=== PATIENT | male | born 1950 | race Caucasian/White ===

== ENCOUNTER 2020-01-06 09:30 | Outpatient (CLI) | payer BC, SELFPAY ==
--- NOTE | 2020-01-06 11:00 | NEURO_ITS ---
Patient Number: [id number] Impression: # Complains of left forearm pain and finger numbness. # Left Carpal Tunnel Syndrome. # Left ulnar neuropathy across the elbow. # Normal needle/EMG exam. Nerve Conduction Studies Anti Sensory Summary Table Stim Site NR Peak (ms) P-T Amp (?V) Site1 Site2 Delta-P (ms) Dist (cm) Randal (m/s) Left Median Anti Sensory (2-3nd Digit) Wrist 3.9 30.6 Wrist 2-3nd Digit 3.9 14.0 36 Wrist 4.1 13.9 Wrist 2-3nd Digit 3.9 14.0 36 Left Radial Anti Sensory (Base 1st Digit) Wrist 2.1 24.3 Wrist Base 1st Digit 2.1 0.0 Left Ulnar Anti Sensory (5th Digit) Wrist 2.5 28.1 Wrist 5th Digit 2.5 14.0 56 Motor Summary Table Stim Site NR Onset (ms) O-P Amp (mV) Site1 Site2 Delta-0 (ms) Dist (cm) Randal (m/s) Left Median Motor (Abd Poll Brev) Wrist 4.5 1.9 Elbow Wrist 5.3 30.0 57 Elbow 9.8 1.7 Left Ulnar Motor (Abd Dig Minimi) Wrist 2.7 5.9 A Elbow Wrist 6.2 30.0 48 A Elbow 8.9 5.6 B Elbow Wrist 4.4 24.0 55 B Elbow 7.1 5.9 F Wave Studies NR F-Lat (ms) L-R F-Lat (ms) Left Median (Mrkrs) (Abd Poll Brev) 30.92 Left Ulnar (Mrkrs) (Abd Dig Min) 29.03 EMG Side Muscle Nerve Root Ins Act Fibs Amp Dur Recrt Comment Left 1stDorInt Ulnar C8-T1 Nml Nml Nml Nml Nml Left Ext Indicis Radial (Post Int) C7-8 Nml Nml Nml Nml Nml Left Ext Digitorum Radial (Post Int) C7-8 Nml Nml Nml Nml Nml Left BrachioRad Radial C5-6 Nml Nml Nml Nml Nml Left PronatorTeres Median C6-7 Nml Nml Nml Nml Nml Left Abd Poll Brev Median C8-T1 Nml Nml Nml Nml Nml Left ABD Dig Min Ulnar C8-T1 Nml Nml Nml Nml Nml MTDD
== END 2020-01-06 09:31 | disposition home or self-care (01) ==
PROVIDERS: PCP Family Medicine; Visit Provider Physician Assistant Surgical
DX: G56.22 Lesion of ulnar nerve, left upper limb (principal); G56.02 Carpal tunnel syndrome, left upper limb
CPT/HCPCS: 95886; 95909

== ENCOUNTER 2023-05-29 11:11 | Outpatient (CLI) | payer BC, SELFPAY ==
--- NOTE | ~2023-05-29 | CT_ITS ---
EXAMINATION: CT abdomen pelvis wo con DATE: 05/29/2023 12:27 INDICATION: Right lower quadrant abdominal pain. TECHNIQUE: Computed tomography (CT) of the abdomen and pelvis was performed without intravenous contr ast. Automated exposure control and iterative reconstruction technique were employed. The dose-length product was 840.38 mGy-cm. COMPARISON: CT abdomen and pelvis 03/23/2019 FINDINGS: The visualized portions of the lung bases demonstrate calcified left lung nodules, consiste nt with old granulomatous disease. There is mild atelectasis bilaterally. No pleural effusion. The he art size is normal. There are coronary artery calcifications. No pericardial effusion. There is mild bilateral gynecomastia. The liver, gallbladder, spleen, pancreas, adrenal glands, and kidneys are nor mal. There is no urolithiasis. There are scattered diverticula in the colon. There is fat stranding a round the sigmoid colon. The appendix is normal. There are no dilated loops of bowel. There is a righ t inguinal hernia containing a portion of the bladder. There is a left inguinal hernia containing fat . Aortic atherosclerosis is noted. There are no pathologically enlarged lymph nodes. There is no free intraperitoneal fluid. There is severe lumbar spondylosis and moderate thoracic spondylosis. IMPRESSION: 1. Right inguinal hernia containing a portion of the bladder. 2. Mild sigmoid diverticulitis. No perforation or abscess. 3. Left inguinal hernia containing fat. Reviewed, dictated and finalized at location A.
== END 2023-05-29 11:12 | disposition home or self-care (01) ==
PROVIDERS: PCP Family Medicine; Visit Provider Nurse Practitioner Family
DX: R10.31 Right lower quadrant pain (principal); R10.32 Left lower quadrant pain; Z87.19 Personal history of other diseases of the digestive system; K57.32 Diverticulitis of large intestine without perforation or abscess without bleeding; K40.20 Bilateral inguinal hernia, without obstruction or gangrene, not specified as recurrent
CPT/HCPCS: 74176

== ENCOUNTER 2023-09-10 12:26 | Outpatient (CLI) | payer BC, SELFPAY | END 2023-09-10 12:27 | disposition home or self-care (01) | LOC: ANHSURGERY 12:32 | PROVIDERS: PCP Family Medicine; Visit Provider Surgery | DX: K40.20 Bilateral inguinal hernia, without obstruction or gangrene, not specified as recurrent (principal); Z01.818 Encounter for other preprocedural examination | CPT/HCPCS: 36415; 86850; 86900; 86901 ==

== ENCOUNTER 2023-09-16 00:09 | Day surgery (SDC) | payer BC, SELFPAY ==
[2023-09-09 13:18] VITALS: BMI 31.1
--- NOTE | 2023-09-09 13:33 | PC.NURSE ---
PRE-OP INSTRUCTIONS, PLEASE READ CAREFULLY Report to the Outpatient Waiting Room, entrance under the green pavilion located off [facility], at time _1000_ on date _09/16/23_. Planned Procedure Time: _1200_. Time changes happen often and if your time is changed the preop area will call you the afternoon before. - You and your visitor will be asked to self-screen and do not enter if you have any COVID symptoms. - A mask is optional within the hospital at this time. Patients may have clear liquids (water, carbonated beverages, clear teas, apple juice) until 3 hours prior to surgery (0900 AM) with a maximum of 20 ounces. - No food from midnight until time of surgery Take the following medications with a SIP of water the morning of surgery: _AMLODIPINE, ISOSORBIDE, NEBIVOLOL_ DO NOT STOP ANY OF YOUR OTHER PRESCRIPTION MEDICATIONS PRIOR TO SURGERY ?EXCEPT THE FOLLOWING Medications to discontinue per DR. SAMUEL - _CALL OFFICE REGARDING DICLOFENAC & VASCEPA_ Date to take last dose Please no make-up, nail montserratian, hairspray, perfume, deodorant, or body powder the day of surgery. No jewelry (including any body piercings) or valuables the day of surgery, leave them at home. Please take a shower or bath the night before, or the morning of, surgery with an antibacterial soap (HIBICLENS). Wear comfortable, loose fitting clothing. - Jewelry must be removed prior to entering the operating room. Rings and piercings that are not removed may be cut off. - The hospital will not accept responsibility for valuables. - Please leave all valuables, including medications, at home the day of surgery. If you are going home after surgery, a licensed double bottom driver must drive you home. - NO public transportation without another adult if you receive anesthesia. - We recommend that an adult stay with you for 24 hours following discharge. - We also recommend that you do not drive, make important decision, drink alcoholic beverages, or take any drugs that were not prescribed by your health care provider for at least 24 hours after your discharge time. Follow any additional instructions given to you from your surgeon. If you or anyone in your household have experienced Covid symptoms in the past week, please notify your surgeon or the nurse liaison at the phone number below for possible testing. Telephone instructions given to _PATIENT_and asked if any additional questions and then verbalized understanding. Patient advised to call surgeon office or pre surgery nurse liaison [phone] if any additional questions.
[2023-09-16] VITALS (9 sets, daily range): BP systolic 115–132; BP diastolic 69–87; PULSE 57–73; RESP 12–18; TEMP 36.3–36.5; O2SAT 94–98
[2023-09-16] MEDS: LACTATED RINGERS 1,000 ML 30 ML IV CONT ×2 (10:39→15:39)
[2023-09-16] MEDS: KETOROLAC 15 MG/ML VIAL (*BKC) IV PUSH (10:40)
[2023-09-16] MEDS: ACETAMINOPHEN 500 MG TABLET 1000 MG PO (10:41)
--- NOTE | 2023-09-16 11:54 | WPDANESEPPF ---
Anes - Initial Pre Proc Eval Procedure: Operation Date: 09/16/23 12:00 Proposed Procedures p Robotic Assisted Laparoscopic Bilateral Inguinal Hernia Repair With Mesh, Possible Open - Duke Senior MD Date/Time: 09/16/23 11:54 Surgeon: Duke Senior MD Pre Op Diagnosis: Dionte Ing Hernias Patient Data Age: 72 Gender: M Height: 1.73 m Weight: 93 kg Last Vital Signs Temp 97.7 F 09/16/23 10:05 Pulse 57 L 09/16/23 10:05 Resp 18 09/16/23 10:05 BP 122/77 09/16/23 10:05 Pulse Ox 98 09/16/23 10:05 Allergies Allergy/AdvReac Type Severity Reaction Status Date / Time No Known Allergies Allergy Unknown Verified 09/16/23 10:12 Home Medications Medication Instructions Recorded Confirmed Type isosorbide mononitrate 30 mg 30 mg PO DAILY 08/25/19 09/16/23 History tablet,extended release 24 hr valacyclovir 1 gram tablet See Rx Instructions PO BID PRN 04/06/20 09/16/23 History rash diclofenac sodium 50 mg 50 mg PO BID PRN pain #180 tabs 12/04/21 09/16/23 Rx tablet,delayed release aliskiren 300 mg tablet (Tekturna) 300 mg PO DAILY #90 tabs 12/30/22 09/16/23 Rx nebivolol 20 mg tablet (Bystolic) 20 mg PO DAILY #90 tabs 02/20/23 09/16/23 Rx amlodipine 10 mg tablet 5 mg PO DAILY #30 tabs 06/16/23 09/16/23 Rx atorvastatin 20 mg tablet 20 mg PO DAILY #90 tabs 06/30/23 09/16/23 Rx hydrochlorothiazide 25 mg tablet 25 mg PO DAILY #90 tabs 07/29/23 09/16/23 Rx clotrimazole-betamethasone 1 1 applic topical BID PRN Skin 09/09/23 09/16/23 History %-0.05 % topical cream Irritation diclofenac 1.5 % solution and See Rx Instructions .Route 09/09/23 09/16/23 History capsaicin 0.025 % cream topical kit .COMPLEX PRN Pain icosapent ethyl 1 gram capsule 2 g PO BID 09/09/23 09/16/23 History (Vascepa) Patient hx anesthesia problems: none Family hx anesthesia problems: none Results Review: All pre-operative results and documents have been reviewed as part of the pre-operative evaluation. [facility] Past Medical History Medical History Bilateral inguinal hernia Right inguinal hernia containing part of the urinary bladder on CT 02/26/2023. Bilateral lower abdominal pain BMI 31.0-31.9,adult BMI 32.0-32.9,adult COVID-19 (04/23/22) tested positive 04/24/2022, vaccinated. COVID antibody positive at greater than 150 on 07/02/2022. Diverticulitis Encounter for prostate cancer screening PSA 0.95 on 07/02/2022. PSA 1.04 on 07/29/2023. Fever blister History of diverticulitis Mild sigmoid diverticulitis on 02/26/[address]. Hyperlipidemia Hypertension Obesity (BMI 30.0-34.9) Obstructive sleep apnea (~03/11/23) failed APAP. home sleep study ordered by microsoft architect on 03/11/2023 with severe [place] with AHI of 46.6 with saturation down 87% with recommendation for CPAP titration orAPAP at 6 -18 cm of water pressure. Osteoarthritis Pain, foot, right, chronic Tinea cruris Surgical History Surgical History Hx of heart artery stent stents x5 in 2012 Family History Family History Mother Patient's mother is , Onset Age: 56 Acute myocardial infarction Family history of malignant neoplasm, Onset Age: 56 Cancer Father Acute myocardial infarction, Onset Age: 63 Sibling Acute myocardial infarction, Onset Age: 52 Grandparent Family history of dementia Other Cerebrovascular accident Heart disease Hypertension Social History Social History Smoking status: Never smoker Second hand tobacco smoke exposure: No Alcohol intake: former Alcohol use details: QUIT 2019 Substance use: never Substance use type: does not use Lack of Transportation: No Lack of Food: Never True Current Housing: I Have Housing Concerned About Future [place]
--- NOTE | 2023-09-16 12:01 | WPDHPUPDATE1 ---
History and Physical Update Update Date/Time: 09/16/23 12:01 History and Physical has been reviewed, including an updated exam of the patient. There are NO changes in the patient's condition. Risks, benefits, and alternatives have been discussed and questions answered. Patient agrees to proceed with procedure.
[2023-09-16] MEDS: ceFAZolin 2 GM/D5W 50 ML 2 GM/50 ML BAG IVPB (12:13)
[2023-09-16] MEDS: LIDO 1%/EPINEPHRINE 1:100,000 20 ML VIAL 30 ML INFILTRATE (12:59)
[2023-09-16] MEDS: ONDANSETRON INJ 4 MG/2 ML VIAL IV PUSH (16:44)
--- NOTE | 2023-09-16 18:30 | W.PM.PROC2 ---
Procedure Note - Detailed Date of Procedure 09/16/23 Pre-op Diagnosis Reducible bilateral inguinal hernias Post-op Diagnosis Same Procedure Performed robotic assisted laparoscopic bilateral inguinal hernia repair with Bard 3D mid weight mesh. Surgeon Duke Senior MD Program Facilitator SOOLMON Rand Anesthesia General Indications Patient is a 9-year-old gentleman who has had longstanding bilateral inguinal hernias the enlarged over time and have become symptomatic with some soreness and pain. He did have a preoperative CT scan which showed the sliding right inguinal hernia with a portion of the bladder in the hernia. The left inguinal hernia just had fatty tissue in it. He presents now for elective robotic assisted laparoscopic bilateral inguinal hernia repair with mesh. Findings Patient had bilateral inguinal hernias both which were indirect inguinal hernias. In the right inguinal hernia which was larger assist sliding hernia with a portion of the bladder within the inguinal canal. The left-sided inguinal hernia she has had fatty tissue in the inguinal canal through the defect. Description of Procedure After informed consent was obtained patient brought to the operating room was placed supine position and then general endotracheal anesthesia was administered. A 3 way Salinas catheter was then placed without difficulty to instill saline into the bladder at the time of dissection of the bladder out of the right inguinal hernia. The abdomen and bilateral groin regions were then prepped and draped usual sterile fashion. Time-out was then performed correctly identifying the patient as well as procedure to be performed verifying that he was given perioperative IV antibiotics. First started by entering the abdomen left upper quadrant utilizing a 10mm Optiview port. Once inside the abdomen insufflated to adequate pneumoperitoneum 15mmHg of CO2. The patient was then placed in the head-down Trendelenburg position allowing the bowel to fall out the pelvis. I could easily see that there were 2 hernias. The right inguinal hernia much larger than left inguinal hernia. Both appeared to be direct inguinal hernias. I then placed additional robotic trocar ports across the mid abdomen under direct visualization. The [employer] robot was then brought to the patient's bedside on the right and then docked to the robotic ports. Robotic instruments were then advanced into the abdomen under visualization. I then scrubbed out the procedure and sent down the robotic console to perform the dissection robotically. I then proceeded to make a preperitoneal flap across the lower portions of the abdomen stay anterior bit medial to the bilateral anterior suprailiac iliac spines. Utilizing robotic hook electrocautery dissection I then dissected this preperitoneal plane and divided the bilateral median umbilical ligaments to release the bladder. I 1st started to dissect down to the left pubic tubercle which identified and then worked my way across the midline to the sliding component of the hernia containing the bladder I dissected down to the space of Retzius for couple cm without difficulty. I then continued my dissection of the left-sided inguinal hernia and dissected the indirect inguinal hernia sac and the inguinal canal. It was then everted. The vas deferens and testicular vessels were identified preserved without injury. I dissected the peritoneal flap up to the psoas muscle past where the vas deferens and the testicular vessels separate. A cord lipoma was then dissected free of the structures and resected and removed from the abdomen and discarded. I then started to dissect the bladder out of the right inguinal hernia. This is then very carefully after instilling foot 200cc of saline solution into the bladder. The bladder did distend could easily see where the wall the bladder was as I dissected out and from the cord structures in the right inguinal region. Identifie
== END 2023-09-16 18:25 | disposition home or self-care (01) ==
PROVIDERS: PCP Family Medicine; Visit Provider Surgery
PROC: 8E0Y4CZ Robotic Assisted Procedure of Lower Extremity, Percutaneous Endoscopic Approach (ICD-10-PCS; CPT 49650; principal; 2023-09-16 12:00)
DX: K40.20 Bilateral inguinal hernia, without obstruction or gangrene, not specified as recurrent (principal); I10 Essential (primary) hypertension; E78.5 Hyperlipidemia, unspecified; G47.33 Obstructive sleep apnea (adult) (pediatric); Z95.5 Presence of coronary angioplasty implant and graft; E66.9 Obesity, unspecified; Z68.30 Body mass index [BMI] 30.0-30.9, adult
CPT/HCPCS: 49650; S2900; A9270; C1781; J0690; J1100; J1170; J1885; J2250; J2405; J2704; J3010; J7030; J7120

== ENCOUNTER 2024-01-30 10:43 | Emergency (ER) | payer BC, SELFPAY ==
--- NOTE | ~2024-01-30 | XR_ITS ---
XR toe 5th LT min 2V 01/30/2024 11:07 Indication: Left fifth toe pain Procedure: 4 views left fifth toe Comparison: No prior studies for comparison. Findings: There is a minimally displaced extra-articular fracture of the fifth proximal phalanx. Mild dorsal angulation. No other fracture identified. There are degenerative calcaneal enthesophytes. Impression: 1: Minimally displaced extra-articular fracture left fifth proximal phalanx with mild dorsal angulati on. Reviewed, dictated and finalized at location B. Impression: 1: Minimally displaced extra-articular fracture left fifth proximal phalanx wit h mild dorsal angulation.
[2024-01-30 10:48] VITALS: BP 176/88; PULSE 60; RESP 16; TEMP 36.8; O2SAT 98
--- NOTE | 2024-01-30 11:22 | ED.LOWEXIN ---
HPI - Extremity Injury (Lower) General Chief Complaint: Extremity Injury, Lower Stated Complaint: L 5TH TOE PAIN Time Seen by Provider: 01/30/24 10:48 Source: patient Mode of arrival: ambulatory Limitations: no limitations History of Present Illness HPI Narrative: Patient is a 73 y/o male who presents to the ED with c/o left 5th toe pain. Patient reports just prior to arrival, he hit his toe on a piece of furniture. He states he states his left 5th toe was bent outward laterally. He complains of pain with ambulation, otherwise denies significant pain. Denies numbness. Denies any other injury. Related Data Home Medications Medication Instructions Recorded Confirmed isosorbide mononitrate 30 mg 30 mg PO DAILY 08/25/19 10/15/23 tablet,extended release 24 hr valacyclovir 1 gram tablet See Rx Instructions PO BID PRN 04/06/20 10/15/23 rash clotrimazole-betamethasone 1 1 applic topical BID PRN Skin 09/09/23 10/15/23 %-0.05 % topical cream Irritation diclofenac 1.5 % solution and See Rx Instructions .Route 09/09/23 10/15/23 capsaicin 0.025 % cream topical kit .COMPLEX PRN Pain icosapent ethyl 1 gram capsule 2 g PO BID 09/09/23 10/15/23 (Vascepa) Allergies Allergy/AdvReac Type Severity Reaction Status Date / Time No Known Allergies Allergy Unknown Verified 01/30/24 10:51 Review of Systems Review of Systems: CONSTITUTIONAL: Denies fever, chills, or sweats. MUSCULOSKELETAL: See HPI. NEUROLOGIC: Denies headache, dizziness, numbness, or weakness. All systems reviewed & are unremarkable except as noted in HPI and below PMFSH Past Medical History Medical History Bilateral inguinal hernia Right inguinal hernia containing part of the urinary bladder on CT 02/26/2023. Bilateral lower abdominal pain BMI 31.0-31.9,adult BMI 32.0-32.9,adult COVID-19 (04/23/22) tested positive 04/24/2022, vaccinated. COVID antibody positive at greater than 150 on 07/02/2022. Diverticulitis Encounter for prostate cancer screening PSA 0.95 on 07/02/2022. PSA 1.04 on 07/29/2023. Fever blister History of diverticulitis Mild sigmoid diverticulitis on 02/26/[address]. Hyperlipidemia Hypertension Obesity (BMI 30.0-34.9) Obstructive sleep apnea (~03/11/23) failed APAP. home sleep study ordered by percussion teacher on 03/11/2023 with severe [place] with AHI of 46.6 with saturation down 87% with recommendation for CPAP titration orAPAP at 6 -18 cm of water pressure. Osteoarthritis Pain, foot, right, chronic Tinea cruris Surgical History Surgical History H/O bilateral inguinal hernia repair 09/16/23 Hx of heart artery stent stents x5 in 2013 Family History Family History Mother Patient's mother is , Onset Age: 56 Acute myocardial infarction Family history of malignant neoplasm, Onset Age: 56 Cancer Father Acute myocardial infarction, Onset Age: 63 Sibling Acute myocardial infarction, Onset Age: 52 Grandparent Family history of dementia Other Cerebrovascular accident Heart disease Hypertension Social History Social History Smoking status: Never smoker Second hand tobacco smoke exposure: No Alcohol intake: former Alcohol use details: QUIT 2019 Substance use: never Substance use type: does not use Lack of Transportation: No Lack of Food: Never True Current Housing: I Have Housing Concerned About Future Housing: No Difficulty Paying Gas/Electric Bills: No Difficulty Paying for Meds: No Currently Unemployed: No Education: Associate Degree Difficulty w/ Childcare or Family Care: No Living arrangements: with family Occupation/Education: retired Gender identity (if verbalized by the patient): Male Sexu
== END 2024-01-30 11:40 | disposition home or self-care (01) ==
PROVIDERS: Emergency Provider Physician Assistant; PCP Family Medicine
DX: S92.512A Displaced fracture of proximal phalanx of left lesser toe(s), initial encounter for closed fracture (principal); I10 Essential (primary) hypertension; E78.5 Hyperlipidemia, unspecified; E66.9 Obesity, unspecified; Z68.30 Body mass index [BMI] 30.0-30.9, adult; M19.90 Unspecified osteoarthritis, unspecified site; G47.33 Obstructive sleep apnea (adult) (pediatric); Z95.5 Presence of coronary angioplasty implant and graft; Z86.16 Personal history of COVID-19; W22.03XA Walked into furniture, initial encounter
CPT/HCPCS: 73660; 99284

== ENCOUNTER 2024-05-10 06:46 | Outpatient (CLI) | payer BC, SELFPAY ==
--- NOTE | ~2024-05-10 | CT_ITS ---
CT of the Abdomen and Pelvis: Indication: Diarrhea, weight loss Technique: 2.5 mm axial scans were obtained through the abdomen and pelvis following intravenous adm inistration of 100 cc of Omnipaque 350. Dose reduction technique was used on this scan by utilizing a utomated exposure control and iterative reconstruction technique. The dose-length product (DLP) was 7 78.22 mGy-cm. COMPARISON: 05/29/2023 Findings: Scans through the lung bases demonstrated stable calcified left lower lobe granuloma. The liver, spleen, pancreas, gallbladder, adrenals and left kidney are within normal limits. Probable right renal cyst present. There are atherosclerotic calcifications of the aorta. No lymphadenopathy . There is wall thickening of the sigmoid colon with underlying diverticular disease. No bowel obstruct ion. No abscess or free air. Images through the pelvis were performed. Urinary bladder unremarkable. No pelvic mass seen. No ascit es. Impression: Wall thickening of sigmoid colon suggests minimal acute diverticulitis. Neoplasm lesion is a potentia l alternative consideration. Consider colonoscopy, as indicated, or possibly follow-up exam after int erval therapy. Reviewed, dictated and finalized at location . Impression: Wall thickening of sigmoid colon suggests minimal acute diverticulitis. Neoplas m lesion is a potential alternative consideration. Consider colonoscopy, as ind icated, or possibly follow-up exam after interval therapy.
[2024-05-10 07:14] LABS: Estimated Glomerular Filt Rate 50
== END 2024-05-10 06:47 | disposition home or self-care (01) ==
PROVIDERS: PCP Family Medicine; Visit Provider Family Medicine
DX: R10.31 Right lower quadrant pain (principal); R10.32 Left lower quadrant pain; R19.7 Diarrhea, unspecified; R63.4 Abnormal weight loss; K57.32 Diverticulitis of large intestine without perforation or abscess without bleeding
CPT/HCPCS: 74177; Q9967

== ENCOUNTER 2024-07-13 00:54 | Day surgery (SDC) | payer BC, SELFPAY ==
[2024-07-13 13:02] VITALS: BP 132/77; PULSE 50; RESP 18; TEMP 36.2; O2SAT 99; BMI 28.6
[2024-07-13] MEDS: LACTATED RINGERS 1,000 ML 150 ML IV CONT (13:14)
--- NOTE | 2024-07-13 13:15 | WPDANESEPPF ---
Anes - Initial Pre Proc Eval Procedure: Operation Date: 07/13/24 14:00 Proposed Procedures p Colonoscopy - Raymond Kennedy MD Date/Time: 07/13/24 13:15 Surgeon: Raymond Kennedy MD Pre Op Diagnosis: diarrhea, diverticulitis of intestine,w/o perf. Patient Data Age: 73 Gender: M Height: 1.75 m Weight: 88 kg Last Vital Signs Temp 97.1 F L 07/13/24 13:02 Pulse 50 L 07/13/24 13:02 Resp 18 07/13/24 13:02 BP 132/77 07/13/24 13:02 Pulse Ox 99 07/13/24 13:02 O2 Del Method Room Air 07/13/24 13:02 Allergies Allergy/AdvReac Type Severity Reaction Status Date / Time No Known Allergies Allergy Unknown Verified 07/13/24 12:56 Home Medications Medication Instructions Recorded Confirmed Type isosorbide mononitrate 30 mg 30 mg PO DAILY 08/25/19 07/13/24 History tablet,extended release 24 hr valacyclovir 1 gram tablet See Rx Instructions PO BID PRN 04/06/20 07/13/24 History rash amlodipine 10 mg tablet 5 mg PO DAILY #30 tabs 06/16/23 07/13/24 Rx atorvastatin 20 mg tablet 20 mg PO DAILY #90 tabs 06/30/23 07/13/24 Rx clotrimazole-betamethasone 1 1 applic topical BID PRN Skin 09/09/23 07/13/24 History %-0.05 % topical cream Irritation diclofenac 1.5 % solution and See Rx Instructions .Route 09/09/23 07/13/24 History capsaicin 0.025 % cream topical kit .COMPLEX PRN Pain icosapent ethyl 1 gram capsule 2 g PO BID 09/09/23 07/13/24 History (Vascepa) aliskiren 300 mg tablet (Tekturna) 300 mg PO DAILY #90 tabs 10/24/23 07/13/24 Rx diclofenac sodium 50 mg 50 mg PO BID PRN pain #180 tabs 10/24/23 07/13/24 Rx tablet,delayed release nebivolol 20 mg tablet (Bystolic) 20 mg PO DAILY #90 tabs 03/22/24 07/13/24 Rx hydrochlorothiazide 25 mg tablet 25 mg PO DAILY #90 tabs 05/10/24 07/13/24 Rx aspirin 81 mg tablet,delayed 81 mg PO DAILY 06/22/24 07/13/24 History release (Adult Low Dose Aspirin) dicyclomine 10 mg capsule See Rx Instructions .Route 06/28/24 07/13/24 Rx .COMPLEX #90 caps Patient hx anesthesia problems: none Family hx anesthesia problems: none Results Review: All pre-operative results and documents have been reviewed as part of the pre-operative evaluation. [facility] Past Medical History Medical History Bilateral inguinal hernia Right inguinal hernia containing part of the urinary bladder on CT 02/26/2023. surgery 09/16/2024. Bilateral lower abdominal pain BMI 31.0-31.9,adult BMI 32.0-32.9,adult Colon cancer screening normal colonoscopy 07/08/2019 with recheck in 10 years. COVID-19 (04/23/22) tested positive 04/24/2022, vaccinated. COVID antibody positive at greater than 150 on 07/02/2022. Dental abscess Diarrhea Stool was negative for C difficile toxin on 04/26/2024. Diverticulitis Dry eye syndrome Encounter for prostate cancer screening PSA 0.95 on 07/02/2022. PSA 1.04 on 07/29/2023. Fever blister History of diverticulitis Mild sigmoid diverticulitis on 02/26/[address]. Hyperlipidemia Hypertension Obesity (BMI 30.0-34.9) Obstructive sleep apnea (~03/11/23) failed APAP. home sleep study ordered by content designer on 03/11/2023 with severe [place] with AHI of 46.6 with saturation down 87% with recommendation for CPAP titration orAPAP at 6 -18 cm of water pressure. Osteoarthritis Pain, foot, right, chronic Tinea cruris Weight loss, abnormal Surgical History Surgical History H/O bilateral inguinal hernia repair 09/16/23 Hx of heart artery stent stents x5 in 2012 Family History Family History Mother Patient's mother is , Onset Age: 56 Acute myocardial infarction Family history of malignant neoplasm, Onset Age: 56 Cancer Father Acute myocardial infarction, Onset Age: 63 Sibling Acute myocardial infarction, Onset Age: 52 Gr
--- NOTE | 2024-07-13 13:16 | PM.HPGS ---
History of Present Illness History of Present Illness Consent: Risks, benefits, and alternatives have been discussed and questions answered. Patient agrees to proceed with procedure. Chief complaint: diarrhea, diverticulitis of intestine,w/o perf. Narrative: Arslan Breaux is a 73 year old male with diarrhea for few months which has improved after bentyl and fibercon, last colonoscopy 2018 Review of Systems Review of Systems: All systems reviewed & are unremarkable except as noted in HPI and below PMFSH Past Medical History Medical History Bilateral inguinal hernia Right inguinal hernia containing part of the urinary bladder on CT 02/26/2023. surgery 09/16/2024. Bilateral lower abdominal pain BMI 31.0-31.9,adult BMI 32.0-32.9,adult Colon cancer screening normal colonoscopy 07/08/2019 with recheck in 10 years. COVID-19 (04/23/22) tested positive 04/24/2022, vaccinated. COVID antibody positive at greater than 150 on 07/02/2022. Dental abscess Diarrhea Stool was negative for C difficile toxin on 04/26/2024. Diverticulitis Dry eye syndrome Encounter for prostate cancer screening PSA 0.95 on 07/02/2022. PSA 1.04 on 07/29/2023. Fever blister History of diverticulitis Mild sigmoid diverticulitis on 02/26/[address]. Hyperlipidemia Hypertension Obesity (BMI 30.0-34.9) Obstructive sleep apnea (~03/11/23) failed APAP. 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 Osteoarthritis Pain, foot, right, chronic Tinea cruris Weight loss, abnormal Surgical History Surgical History H/O bilateral inguinal hernia repair 09/16/23 Hx of heart artery stent stents x5 in 2012 Family History Family History Mother Patient's mother is , Onset Age: 56 Acute myocardial infarction Family history of malignant neoplasm, Onset Age: 56 Cancer Father Acute myocardial infarction, Onset Age: 63 Sibling Acute myocardial infarction, Onset Age: 52 Grandparent Family history of dementia Other Cerebrovascular accident Heart disease Hypertension Social History Social History Smoking status: Never smoker Second hand tobacco smoke exposure: No Alcohol intake: current Alcohol use details: QUIT 2019 Substance use: never Substance use type: does not use Lack of Transportation: No Lack of Food: Never True Current Housing: I Have Housing Concerned About Future Housing: No Difficulty Paying Gas/Electric Bills: No Difficulty Paying for Meds: No Currently Unemployed: No Education: Associate Degree Difficulty w/ Childcare or Family Care: No Living arrangements: with family Occupation/Education: retired Gender identity (if verbalized by the patient): Male Sexual Orientation (if Verbalized by the Patient): Straight or Heterosexual Spiritual care concerns: No Agree to blood products: Yes Meds Home Medications and Allergies Home Medications Medication Instructions Recorded Confirmed Type isosorbide mononitrate 30 mg 30 mg PO DAILY 08/25/19 07/13/24 History tablet,extended release 24 hr valacyclovir 1 gram tablet See Rx Instructions PO BID PRN 04/06/20 07/13/24 History rash amlodipine 10 mg tablet 5 mg PO DAILY #30 tabs 06/16/23 07/13/24 Rx atorvastatin 20 mg tablet 20 mg PO DAILY #90 tabs 06/30/23 07/13/24 Rx clotrimazole-betamethasone 1 1 applic topical BID PRN Skin 09/09/23 07/13/24 History %-0.05 % topical cream Irritation diclofenac 1.5 % solution and See Rx Instructions .Route 09/09/23 07/13/24 History capsaicin 0.025 % cream topical kit .COMPLEX PRN Pain icosapent et
[2024-07-13 13:35] VITALS: BP 88/56; PULSE 50; RESP 17; O2SAT 95
[2024-07-13 13:45] VITALS: BP 92/60; PULSE 50; RESP 14; O2SAT 97
[2024-07-13 13:55] VITALS: BP 107/68; PULSE 50; RESP 17; O2SAT 100
== END 2024-07-13 14:11 | disposition home or self-care (01) ==
PROVIDERS: PCP Family Medicine; Referring Provider Nurse Practitioner Family; Visit Provider Internal Medicine Gastroenterology
PROC: 0DJD8ZZ Inspection of Lower Intestinal Tract, Via Natural or Artificial Opening Endoscopic (ICD-10-PCS; CPT 45378; principal; 2024-07-13 14:00)
DX: K64.8 Other hemorrhoids (principal); K57.30 Diverticulosis of large intestine without perforation or abscess without bleeding; K52.832 Lymphocytic colitis; I10 Essential (primary) hypertension; E78.5 Hyperlipidemia, unspecified; G47.33 Obstructive sleep apnea (adult) (pediatric); Z79.82 Long term (current) use of aspirin; Z98.890 Other specified postprocedural states; Z95.5 Presence of coronary angioplasty implant and graft; Z80.9 Family history of malignant neoplasm, unspecified; Z82.49 Family history of ischemic heart disease and other diseases of the circulatory system
CPT/HCPCS: 45380; 88305; J2003; J2704; J7120